=== PATIENT | female | born 1965 | race Caucasian/White ===

== ENCOUNTER 2018-03-24 20:03 | Inpatient (IN) | payer SELFPAY ==
[~2018-03-24] VITALS: Ht 170.2 cm; Wt 70.3 kg
[2018-03-24] MEDS ORDERED: ONDANSETRON HCL INJ 2 MG/ML VIAL IV STA (20:23)
[2018-03-24] MEDS ORDERED: PANTOPRAZOLE 40 MG 10ML VIAL IV STA (20:23)
[2018-03-24] MEDS ORDERED: MORPHINE SULFATE 2 MG/ML SYR IV STA (20:23)
[2018-03-24] MEDS ORDERED: SODIUM CHLORIDE 0.9% 1000ML 1,000 ML IV STA (20:23)
[2018-03-24] MEDS ORDERED: DIATRIZOATE MEGL/DIATRIZOA SOD 30 ML BTL PO ONE (20:35)
[2018-03-24 20:44] LABS: CLARITY,URINE SL CLOUDY (CLEAR); COLOR,URINE YELLOW (YELLOW)
[2018-03-24 20:45] LABS: BILIRUBIN,URINE 2+ (NEGATIVE); KETONES,URINE TRACE (NEGATIVE); LEUKOCYTE ESTERASE ,URINE TRACE (NEGATIVE); NITRITE,URINE NEGATIVE (NEGATIVE); PROTEIN,URINE DIPSTICK 1+ (NEGATIVE); URINE UROBILINOGEN 0.2 mg/dL (0.2 - 1)
[2018-03-24 20:46] LABS: BASOPHILS # (AUTO) 0.1 (0.0-0.1); BASOPHILS % 0.5 % (0.0-1.0); EOSINOPHILS # (AUTO) 0.6 (0.0-0.4); EOSINOPHILS % 3.3 % (0.0-6.0); HEMATOCRIT 44.7 % (34.2-44.1); HEMOGLOBIN 15.7 g/dL (12.0-16.0); LYMPHOCYTES # (AUTO) 4.8 (1.0-3.2); LYMPHOCYTES % 25.2 % (18.0-39.1); MEAN CORPUSCULAR HEMOGLOBIN 32.8 pg (28-32); MEAN CORPUSCULAR HGB CONC 35.1 g/dL (31-35); MEAN CORPUSCULAR VOLUME 93.3 fL (81-99); MONOCYTES # (AUTO) 1.7 (0.2-0.8); MONOCYTES % 8.7 % (4.4-11.3); NEUTROPHILS # (AUTO) 11.8 (2.1-6.9); NEUTROPHILS % 61.9 % (38.7-80.0); PLATELET COUNT 423 x10e3/uL (140-360); RED BLOOD COUNT 4.79 x10e6/uL (3.6-5.1); RED CELL DISTRIBUTION WIDTH 13.7 % (11.7-14.4)
[2018-03-24 20:49] LABS: INR 0.94; PROTHROMBIN TIME 11.8 seconds (11.9-14.5)
[2018-03-24 20:50] LABS: PARTIAL THROMBOPLASTIN TIME 27.3 seconds (23.8-35.5)
[2018-03-24 20:55] LABS: BACTERIA,URINE MANY /HPF; EPITHELIAL CELLS,URINE RARE /LPF; MUCUS,URINE FEW (RARE)
[2018-03-24 21:00] LABS: ALANINE AMINOTRANSFERASE 37 IU/L (0-55); ALBUMIN 4.7 g/dL (3.5-5.0); ALBUMIN/GLOBULIN RATIO 1.1 (0.8-2.0); ALKALINE PHOSPHATASE 65 IU/L (40-150); AMYLASE 56 U/L (25-125); ANION GAP 19.7 mmol/L (8-16); BLOOD UREA NITROGEN 9 mg/dL (7-26); BUN/CREATININE RATIO 7 (6-25); CARBON DIOXIDE 25 mmol/L (22-29); CHLORIDE 98 mmol/L (98-107); CREATINE KINASE 33 IU/L (29-168); CREATININE, SERUM 1.26 mg/dL (0.57-1.11); EST GLOMERULAR FILTRATION RATE 44 ML/MIN (60-); GLUCOSE 143 mg/dL (74-118); LIPASE 26 U/L (8-78); MAGNESIUM 1.6 MG/DL (1.3-2.1); POTASSIUM 3.7 mmol/L (3.5-5.1); SODIUM 139 mmol/L (136-145)
--- NOTE | 2018-03-24 21:17 | Diagnostic Imaging Report ---
EXAM: CHEST SINGLE (PORTABLE), AP 1 view INDICATION: Not available COMPARISON: None FINDINGS: LINES/TUBES: None LUNGS: No consolidations or edema. PLEURA: No effusions or pneumothorax. HEART AND MEDIASTINUM: Normal size and contour. BONES AND SOFT TISSUES: No acute findings. Lower cervical spine surgical hardware. IMPRESSION: No acute thoracic abnormality. Signed by: Dr. Mayuri Alegria M.D. on 03/24/2018 9:14 PM
--- NOTE | 2018-03-24 22:45 | Diagnostic Imaging Report ---
EXAM: CT ABDOMEN AND PELVIS with IV CONTRAST DATE: 03/24/2018 8:23 PM Time stamp on Exam: 2218 hours INDICATION: Abdominal pain, history of multiple small bowel obstructions COMPARISON: None TECHNIQUE: The abdomen and pelvis were scanned using a multidetector helical scanner. Coronal and sagittal reformations were obtained. Routine protocol performed. IV Contrast: 100 cc Isovue 370 Oral Contrast: Gastrografin CTDIvol has been reviewed. It is below the limits set by the Radiation Protocol Committee (RPC). FINDINGS: LOWER THORAX: No consolidations LIVER: No masses BILIARY: The gallbladder is unremarkable. No ductal dilation. SPLEEN: No masses PANCREAS: No masses ADRENALS: No nodules KIDNEYS: Symmetric perfusion. No enhancing masses. No hydronephrosis. GI TRACT: The small bowel is dilated up to 4.5 cm. The transition point is in the left lower abdomen involving the distal ileum, likely due to adhesions. Gastrografin in the partially visualized distal esophagus. Colonic diverticulosis, otherwise normal appearance of the colon. VESSELS: Advanced atherosclerotic changes of the aorta without aneurysm. PERITONEUM/RETROPERITONEUM: No free air. Trace pelvic fluid and mesenteric edema. Surgical clips throughout the peritoneum. LYMPH NODES: No lymphadenopathy REPRODUCTIVE ORGANS: The uterus and ovaries are not visualized. BLADDER: Unremarkable SOFT TISSUES: Unremarkable BONES: No suspicious bone lesions. IMPRESSION: Small bowel obstruction with loops dilated up to 4.5 cm. The transition site is in the left lower abdomen involving the distal ileum, likely secondary to adhesions. Signed by: Dr. Mayuri Alegria M.D. on 03/24/2018 10:41 PM
[2018-03-24] MEDS ORDERED: IOPAMIDOL 370 MG/ML 200 ML INFUS..BTL INJ ONE (22:48)
[2018-03-24] MEDS ORDERED: SODIUM CHLORIDE 0.9% 50ML 50 ML ONE (22:48)
[2018-03-24] MEDS ORDERED: BENZOCAINE/TETRACAINE/BUTAMBEN AERO SPRAY 56 GM CAN TOP ONE (23:00)
[2018-03-24] MEDS: PIPER-TAZ 3.375 GM 50 ML IV SCH (23:45)
[2018-03-24] MEDS: HYDROMORPHONE 1MG/1ML INJ IV PRN (23:45)
[2018-03-24] MEDS: SODIUM CHLORIDE 0.9% 1000ML 1,000 ML IV SCH (23:45)
[2018-03-24] MEDS: ONDANSETRON HCL INJ 2 MG/ML VIAL IV PRN (23:46)
[2018-03-25 00:27] LABS: FREE THYROXINE INDEX 2.3641 (1.4-3.8); THYROID STIMULATING HORMONE 14.165 uIU/mL (0.350-4.940)
[2018-03-25 02:00] VITALS: BP 133/86
[2018-03-25] MEDS: ONDANSETRON HCL INJ 2 MG/ML VIAL IV PRN ×4 (03:04→22:29)
[2018-03-25] MEDS: HYDROMORPHONE 1MG/1ML INJ IV PRN ×5 (03:04→22:30)
[2018-03-25] MEDS: SODIUM CHLORIDE 0.9% 1000ML 1,000 ML IV SCH ×3 (04:14→18:16)
[2018-03-25 05:19] VITALS: BP 133/86
--- NOTE | 2018-03-25 06:37 | Diagnostic Imaging Report ---
EXAM: ABDOMEN COMP INCL UPR or DECUB INDICATION: Small bowel obstruction, nasogastric tube placement COMPARISON: CT of the abdomen and pelvis March 24, 2018 FINDINGS: LINES/TUBES: Tip of nasogastric tube terminates in the expected location of the proximal stomach. BOWEL PATTERN: Dilated loops of small bowel. Previously administered oral contrast is seen in at least the ascending colon. SOFT TISSUES: Multiple surgical clips in the left upper quadrant and pelvis. IV contrast in the bladder from recent CT. LUNG BASES: Mild bibasilar atelectasis. BONES: No acute findings. IMPRESSION: Persistent findings of partial small bowel obstruction. The tip of the nasogastric tube terminates in expected location of the proximal stomach. Signed by: Dr. Mayuri Alegria M.D. on 03/25/2018 6:34 AM
[2018-03-25] MEDS: PIPER-TAZ 3.375 GM 50 ML IV SCH ×3 (06:43→18:16)
[2018-03-25 06:52] LABS: BASOPHILS % 0.4 % (0.0-1.0); EOSINOPHILS # (AUTO) 0.3 (0.0-0.4); EOSINOPHILS % 3.7 % (0.0-6.0); HEMATOCRIT 38.1 % (34.2-44.1); HEMOGLOBIN 12.9 g/dL (12.0-16.0); LYMPHOCYTES # (AUTO) 3.3 (1.0-3.2); LYMPHOCYTES % 36.3 % (18.0-39.1); MEAN CORPUSCULAR HEMOGLOBIN 32.3 pg (28-32); MEAN CORPUSCULAR HGB CONC 33.9 g/dL (31-35); MEAN CORPUSCULAR VOLUME 95.3 fL (81-99); MONOCYTES % 10.8 % (4.4-11.3); NEUTROPHILS # (AUTO) 4.4 (2.1-6.9); NEUTROPHILS % 48.5 % (38.7-80.0); PLATELET COUNT 290 x10e3/uL (140-360); RED CELL DISTRIBUTION WIDTH 13.6 % (11.7-14.4)
[2018-03-25 07:13] LABS: ALANINE AMINOTRANSFERASE 26 IU/L (0-55); ALBUMIN 3.6 g/dL (3.5-5.0); ALBUMIN/GLOBULIN RATIO 1.2 (0.8-2.0); ALKALINE PHOSPHATASE 48 IU/L (40-150); ANION GAP 13.8 mmol/L (8-16); BLOOD UREA NITROGEN 8 mg/dL (7-26); BUN/CREATININE RATIO 10 (6-25); CALCIUM 9.5 mg/dL (8.4-10.2); CARBON DIOXIDE 24 mmol/L (22-29); CHLORIDE 104 mmol/L (98-107); EST GLOMERULAR FILTRATION RATE > 60 ML/MIN (60-); GLUCOSE 109 mg/dL (74-118); POTASSIUM 3.8 mmol/L (3.5-5.1); SODIUM 138 mmol/L (136-145)
[2018-03-25 08:00] VITALS: BP 90/52
[2018-03-25 12:14] VITALS: BP 121/68
[2018-03-25] MEDS ORDERED: CHLORASEPTIC SPRAY 177 ML BTL MM PRN (14:45)
--- NOTE | 2018-03-25 15:14 | History and Physical ---
HISTORY OF PRESENT ILLNESS: A 52-year-old female with past medical history positive for COPD. She came here with abdominal pain, nausea and vomiting. She was found to have a small-bowel obstruction. Apparently she had several abdominal surgeries in the past and several small-bowel obstructions in the past. REVIEW OF SYSTEMS: CARDIOVASCULAR: No chest pain or palpitation. RESPIRATORY: No shortness of breath. No cough. GASTROINTESTINAL: She has nausea, abdominal pain and abdominal distention. No diarrhea. She has constipation. GENITOURINARY: No frequency and no dysuria. ALLERGIES: NOT ALLERGIC TO ANY MEDICATIONS. PAST MEDICAL HISTORY: Positive for COPD, several abnormalities surgeries and small bowel obstruction secondary to adhesions in the past. SOCIAL HISTORY: She does smoke. She drinks occasionally. PHYSICAL EXAMINATION: VITAL SIGNS: Blood pressure 129/68. Temperature 97.4. Heart rate 80 per minute Respiratory rate 20 per minute. Oxygen saturation 98%. LABORATORY DATA: On the BMP sodium 138, potassium 3.8, chloride 104. CO2 24. BUN 8, creatinine 0.80. Glucose 109. On the CBC white blood count 9.10, hemoglobin 12.9, hematocrit 38.1, platelet count 290,000. PTT 27.3. PT 11.8. INR 0.94. AST 19. ALT 26. Total bilirubin 0.8, alkaline phosphatase 48. The abdominal CT showed small-bowel obstruction at the level of the ileum. FINAL IMPRESSION: 1. Small-bowel obstruction. 2. Chronic obstructive pulmonary disease. 3. Hypercalcemia. 4. Urinary tract infection. PLAN OF TREATMENT: N.p.o. NG tube to suction. Dr. Gerald Quintana has been consulted from the surgical point of view. Continue Zosyn 3.375 grams IV piggyback q.6 hours. Normal saline 150 mL an hour. Dilaudid 1 mg IV q.4 h. Zofran 4 mg IV q.4 h. We are going to repeat another abdominal x-ray tomorrow. Job#: [id number]
[2018-03-25 15:54] VITALS: BP 106/58
--- NOTE | 2018-03-25 16:13 | Diagnostic Imaging Report ---
EXAM: ABDOMEN-1VIEW (KUB), DATE: 03/25/2018 2:37 PM INDICATION: Small bowel obstruction. COMPARISON: None. Correlation with CT abdomen dated 03/24/2018. FINDINGS: LINES/TUBES: 18 G-tube with distal tip projected on the expected location of the gastric body with distal sidehole just distal to the expected location of the esophagogastric junction. 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 SOFT TISSUES: No abnormal calcifications. No mass effect. Multiple metallic clips projected throughout the left abdomen and pelvis. Residual contrast within the urinary bladder. LUNG BASES: Not included BONES: No acute findings. IMPRESSION: Nonobstructive bowel gas pattern; No dilated bowel loops are identified with this examination, however, appearance is similar to regional commercial sales manager KUB from the CT examination dated 03/24/18 (the CT examination showed dilated small bowel loops concerning for obstruction as reported. Follow-up CT abdomen and pelvis with contrast may be more appropriate for follow-up if clinically warranted. Signed by: Dr. Shania Guan M.D. on 03/25/2018 4:10 PM
[2018-03-25 20:00] VITALS: BP 102/57
[2018-03-25] MEDS: BISACODYL 10 MG SUPP PR SCH (22:30)
[2018-03-26] VITALS (7 sets, daily range): BP systolic 105–143; BP diastolic 56–75
[2018-03-26] MEDS: PIPER-TAZ 3.375 GM 50 ML IV SCH ×4 (01:04→18:25)
[2018-03-26] MEDS: SODIUM CHLORIDE 0.9% 1000ML 1,000 ML IV SCH ×4 (01:05→22:00)
[2018-03-26] MEDS: HYDROMORPHONE 1MG/1ML INJ IV PRN ×7 (01:27→21:53)
[2018-03-26] MEDS: ONDANSETRON HCL INJ 2 MG/ML VIAL IV PRN ×4 (04:40→21:49)
[2018-03-26] MEDS ORDERED: SODIUM CHLORIDE 0.9% 50ML 50 ML ONE (05:14)
[2018-03-26] MEDS ORDERED: IOPAMIDOL 370 MG/ML 200 ML INFUS..BTL INJ ONE (05:14)
[2018-03-26 06:04] LABS: ANION GAP 12.1 mmol/L (8-16); BLOOD UREA NITROGEN 8 mg/dL (7-26); BUN/CREATININE RATIO 10 (6-25); CARBON DIOXIDE 28 mmol/L (22-29); CHLORIDE 108 mmol/L (98-107); EST GLOMERULAR FILTRATION RATE > 60 ML/MIN (60-); GLUCOSE 86 mg/dL (74-118); POTASSIUM 4.1 mmol/L (3.5-5.1); SODIUM 144 mmol/L (136-145)
--- NOTE | 2018-03-26 06:21 | Diagnostic Imaging Report ---
EXAM: CT ABDOMEN AND PELVIS with IV CONTRAST DATE: 03/26/2018 8:00 AM Time stamp on Exam: 0545 hours INDICATION: Small bowel obstruction, upper abdominal pain COMPARISON: CT of the abdomen and pelvis March 24, 2018 TECHNIQUE: The abdomen and pelvis were scanned using a multidetector helical scanner. Coronal and sagittal reformations were obtained. Routine protocol performed. IV Contrast: 100 cc Isovue-370 Oral Contrast: None CTDIvol has been reviewed. It is below the limits set by the Radiation Protocol Committee (RPC). FINDINGS: LOWER THORAX: Bibasilar atelectasis LIVER: No masses BILIARY: The gallbladder is unremarkable. No ductal dilation. SPLEEN: No masses PANCREAS: No masses ADRENALS: No nodules KIDNEYS: Symmetric perfusion. No enhancing masses. No hydronephrosis. GI TRACT: Nasogastric tube terminates in the body of the stomach. Near complete resolution of the small bowel obstruction, however there is new scattered areas of small bowel wall thickening and trace ascites. VESSELS: No interval change. The celiac, superior mesenteric and inferior mesenteric arteries are patent. PERITONEUM/RETROPERITONEUM: Trace abdominal fluid, new from prior exam. LYMPH NODES: No lymphadenopathy REPRODUCTIVE ORGANS: Uterus and ovaries are not visualized. BLADDER: Unremarkable SOFT TISSUES: Unremarkable BONES: No suspicious bone lesions. IMPRESSION: Near complete resolution of the small bowel obstruction; however there is new small bowel wall thickening and trace ascites. Recommend clinical correlation for possible early bowel ischemia. Signed by: Dr. Mayuri Alegria M.D. on 03/26/2018 6:17 AM
--- NOTE | 2018-03-26 06:23 | Diagnostic Imaging Report ---
EXAM: ABDOMEN ACUTE SERIES W/PA CXR INDICATION: Small bowel obstruction COMPARISON: March 25 2018 FINDINGS: LINES/TUBES: Nasogastric tube terminates in the body of the stomach LUNGS: New bibasilar atelectasis PLEURA: No effusions or pneumothorax. HEART AND MEDIASTINUM: Normal size and contour. BOWEL PATTERN: Interval decrease in dilated loops of small bowel. Small bowel wall thickening. BONES AND SOFT TISSUES: No acute bone findings. Surgical clips left upper quadrant of the abdomen and left lower pelvis. IMPRESSION: New bibasilar atelectasis. Resolving small bowel obstruction; however with new small bowel wall thickening. Signed by: Dr. Mayuri Alegria M.D. on 03/26/2018 6:19 AM
[2018-03-26] MEDS: BISACODYL 10 MG SUPP PR SCH ×2 (08:15→21:47)
[2018-03-26] MEDS: PANTOPRAZOLE 40 MG 10ML VIAL IV SCH (08:15)
[2018-03-26] MEDS: LACTULOSE SYRUP 20 GM/30 ML UDC PO PRN (18:25)
--- NOTE | 2018-03-26 22:56 | Progress Note ---
DATE: March 26, 2018 INTERNAL MEDICINE PROGRESS NOTE SUBJECTIVE: Patient is doing well. She still has NG tube. The CT of the abdomen showed resolution of small-bowel obstruction with some edema of the small bowel on the left. PHYSICAL EXAM: VITAL SIGNS: Blood pressure 133/70. Temperature 97.6. Heart rate 75 per minute. Respiratory rate 18 per minute. Oxygen saturation 97%. HEART: Regular rhythm. Normal S1, S2 sounds. LUNGS: Clear bilaterally. ABDOMEN: Soft, nontender, nondistended. No visceromegaly. LAB WORK: BMP showed sodium 144, potassium 4.1, chloride 108, CO2 28, BUN 8, creatinine 0.80, glucose 86. On the CBC, white blood count 9.10, hemoglobin 12.9, hematocrit 38.1, platelet count 290,000. PT 11.8, PTT 27.3, INR 0.94. AST 19, ALT 26, total bilirubin 0.6, alkaline phosphatase 48. FINAL IMPRESSION: Small-bowel obstruction. PLAN OF TREATMENT: Continue n.p.o. status. We are going to start liquid diet if okay with Dr. Gerald Quintana, surgeon. Continue Zosyn 3.375 g IV q.6 h., normal saline 150 mL an hour, Zofran 4 mg IV q.4 h. as needed for nausea, Protonix 40 mg daily, Dilaudid 0.5 mg IV q.3 h. as needed for severe pain, lactulose 20 g q.12 h. as needed for constipation. So, patient most likely is going to start liquid diet today if okay with the surgeon. Then, we can pull the NG tube if she tolerated the diet. She might be able to go home tomorrow. Job#: [id number] JASPAL
[2018-03-27] VITALS: BP 111/58
[2018-03-27] MEDS: PIPER-TAZ 3.375 GM 50 ML IV SCH ×4 (00:44→17:25)
[2018-03-27] MEDS: HYDROMORPHONE 1MG/1ML INJ IV PRN ×3 (00:50→11:25)
[2018-03-27 04:00] VITALS: BP 131/64
[2018-03-27] MEDS: SODIUM CHLORIDE 0.9% 1000ML 1,000 ML IV SCH ×3 (05:36→17:58)
[2018-03-27] MEDS: ONDANSETRON HCL INJ 2 MG/ML VIAL IV PRN (05:40)
[2018-03-27] MEDS: BISACODYL 10 MG SUPP PR SCH (08:00)
[2018-03-27 08:10] VITALS: BP 132/67
[2018-03-27] MEDS: PANTOPRAZOLE 40 MG 10ML VIAL IV SCH (08:34)
[2018-03-27] MEDS: LACTULOSE SYRUP 20 GM/30 ML UDC PO PRN (08:38)
[2018-03-27 08:46] VITALS: BP 132/67
[2018-03-27 12:00] VITALS: BP 138/74
--- NOTE | 2018-03-27 16:25 | Discharge Summary ---
This is a 52-year-old female with no past medical history except for recurrent bowel obstructions in the past. She came here with abdominal pain and distension. She was found to have a small-bowel obstruction. An NG tube was placed. IV fluids were started. IV antibiotic was started. Calcium was high. The calcium came back to normal number. Patient's bowel obstruction had completely resolved on the last CAT scan. There was a mild swelling of the small bowel of unclear significance, most likely secondary to small-bowel obstruction. Patient is tolerating the diet, no vomiting. Dr. Quintana is going to see her from the surgical point of view and hopefully discharge her today. On the physical exam, blood pressure 138/74, temperature 98.3, heart rate 76 per minute, respiratory rate 18 per minute, oxygen saturation 97%. On the BMP, sodium 144, potassium 4.1, chloride 108, CO2 28, BUN 8, creatinine 0.80, glucose 86. On the CBC, white blood count 9.10, hemoglobin 12.9, hematocrit 38.1, platelet count 290,000. PT 11.8, INR 0.84, PTT 27.3. AST 19, ALT 26, total bilirubin 0.8, alkaline phosphatase 48. FINAL IMPRESSION 1. Small-bowel obstruction, which is completely resolved. 2. Hypercalcemia, which is resolved. PLAN OF TREATMENT: Patient is going to be discharged home if okay with Dr. Gerald Quintana, surgeon. Follow up with me and follow up with Dr. Quintana as an outpatient. SHARONDA SULLIVAN MD Job#: [id number]
[2018-03-27 16:41] VITALS: BP 159/81
== END 2018-03-27 19:48 | disposition home or self-care (01) | DRG 389 ==
LOC: ER 20:03 → ERHOLD 23:21 → UNDOADMIN 03-25 00:41 → ERHOLD 03-25 00:41 → MED/SURG 03-25 02:00
PROVIDERS: ADMIT Internal Medicine; ATTEND Internal Medicine
CPT/HCPCS: 36415; 71045; 74018; 74022; 74177; 80048; 80053; 81001; 82150; 82330; 82533; 82550; 82553; 83519; 83605; 83690; 83735; 83970; 84436; 84443; 84479; 84484; 85025; 85610; 85730; 87086; 93005; 99284; J1170; J2270; J2405; J2543; J7030; Q9967